=== PATIENT | female | born 1980 | race Hispanic/Latino ===

== ENCOUNTER 2016-04-29 04:45 | Inpatient (IN) | payer OTHER ==
[2016-04-29] MEDS ORDERED: Lactated Ringer's 1,000 ML IV SCH ×2 (05:15→21:45)
--- NOTE | 2016-04-29 05:26 | OBHP ---
Datetime: 04/29/2016 05:23 IP Adm Impression: Term, intrauterine IP Admit Plan: Observation/Evaluation Admit Comment, IP Provider: Patient is a @ 39.6 wks with painful contractions. No VB, no leakin g, +FM. Patient was evaluated earlier today and found to be 1cm. Patient denies any antepartum issues , no medical problems, no allergies, no medication except PNV VE=/-2 LVT=077 mod eb, +accels, no decels TOCO= ctxning q 2-3 mins A/P 1. Patient is unchanged since her earlier exam, but very uncomfortable. SMV=[id number] cat-I 2. Will given Morhine rest with 10IV/10IM 3. CEFM and TOCO 4. re-evaluate as needed Pelvic Type - PN: Adequate Extremities - PN: Normal Abdomen - PN: Normal Back - PN: Normal Breast - PN: Normal Lungs - PN: Normal Heart - PN: Normal Thyroid - PN: Normal Neurologic - PN: Normal HEENT - PN: Normal General - PN: Normal FHR - Baseline A Provider: 130 EGA AdmitDate IP: 39.6 Vital Signs Provider: Reviewed; Within Normal Limits IP Chief Complaint: Uterine contractions NICHD Variability Prov Fetus A: Moderate 6-25bpm NICHD Accel Fetus A IP Provider: [id number] NICHD Decel Fetus A IP Provider: None Dilatation, Provider: 1 Effacement, Provider: 70 Station, Provider: -2 Genitourinary Exam: Normal DTRs - PN: Normal
[2016-04-29 06:45] LABS: HEMATOCRIT 36.3 % (34.0-47.0); MEAN CELL VOLUME 88.3 fl (81.0-99.0); MEAN CORPUSCULAR HEMOGLOBIN 30.1 pg (27.0-31.0); RED CELL DISTRIBUTION WIDTH 13.2 % (11.5-14.5); WHITE BLOOD COUNT 15.3 K/uL (4.8-10.8)
--- NOTE | 2016-04-29 10:59 | OBPN ---
Datetime: 04/29/2016 10:50 IP Progress Impression: Normal progression of labor; Reassuring heart rate IP Informed Consent Obtain: Vaginal Delivery; Risks, Benefits and Alternatives Discussed IP Procedures: Artificial ROM IP Progress Plan: Continue present management; Augmentation; Anesthesia consult Pool Provider: Positive Membranes, Provider: Ruptured Amniotic Fluid Color, Provider: Clear FHR - Baseline A Provider: 120 Presentation-Admit: Vertex IP Progress Note Comment: She was seen by Dr ARELLANO. She was given Morphine for pain. She felt better but pain has returned A: IUP at term latent phase of labor P: discussion about labor, pain management, augmentation, delivery and care Agrees to AROM (clear Fluid)...will obtain epidural and start Pitocin augmentation NICHD Accel Fetus A IP Provider: 15X15 FHR Category Provider Fetus A: Category I NICHD Variability Prov Fetus A: Moderate 6-25bpm Dilatation, Provider: 2 Effacement, Provider: 50 Station, Provider: -1 NICHD Decel Fetus A IP Provider: None Datetime: 04/29/2016 09:10 Gestation - Est Wks by US: 39.6 Datetime: 04/29/2016 05:23 Vital Signs Provider: Reviewed; Within Normal Limits
[2016-04-29] MEDS ORDERED: Lactated Ringer's 1,000 ML IV ONE (11:00)
[2016-04-29] MEDS ORDERED: Fentanyl/Bupivacaine HCl 250 ML EPI ONE (11:53)
[2016-04-29] MEDS ORDERED: Sodium Chloride 0.9% 1,000 ML IV SCH (18:00)
--- NOTE | 2016-04-29 18:02 | OBPN ---
Datetime: 04/29/2016 17:55 IP Progress Impression: Normal progression of labor IP Informed Consent Obtain: Vaginal Delivery; Risks, Benefits and Alternatives Discussed IP Procedures: Intrauterine Pressure Catheter; Amnio Infusion IP Progress Plan: Continue present management Pool Provider: Positive Membranes, Provider: Ruptured Amniotic Fluid Color, Provider: Clear Contraction Comments Provider: 2-3m FHR - Baseline A Provider: 140 IP Progress Note Comment: She had relief from pain with epidural at 12pm. Pitocin at 2:30pm but shut off beacuse she had decel noted. Since then she has been having CTX q3m (no meds) Deceleratoin noted cine 17:35pm...? variable A: Variable decelerations in latent phase oflabor P: condition disucssed with pt...IUPC place and start amnioinfusion NICHD Accel Fetus A IP Provider: 15X15 FHR Category Provider Fetus A: Category II NICHD Variability Prov Fetus A: Moderate 6-25bpm Dilatation, Provider: 4 Effacement, Provider: 90 Station, Provider: 0 NICHD Decel Fetus A IP Provider: Variable
[2016-04-29] MEDS ORDERED: Lidocaine 1% Inj (20ml) ONE (20:04)
--- NOTE | 2016-04-29 20:24 | OBPN ---
Datetime: 04/29/2016 20:00 IP Progress Impression: Normal progression of labor; Reassuring heart rate IP Informed Consent Obtain: Vaginal Delivery; Risks, Benefits and Alternatives Discussed IP Progress Plan: Continue present management; Augmentation Pool Provider: Positive Membranes, Provider: Ruptured Contraction Comments Provider: 2-3m FHR - Baseline A Provider: 150 Presentation-Admit: Vertex IP Progress Note Comment: She had deceleration noted at 19:55pm. SVE 9cm Active phase of labor IUPC in place//amnioinfusion running at 125cc/h and Pitocin at 3miu/h NICHD Accel Fetus A IP Provider: 15X15 FHR Category Provider Fetus A: Category I NICHD Variability Prov Fetus A: Moderate 6-25bpm Dilatation, Provider: 9 Effacement, Provider: 100 Station, Provider: 0 NICHD Decel Fetus A IP Provider: None
--- NOTE | 2016-04-29 23:36 | OBPN ---
Datetime: 04/29/2016 23:30 IP Progress Impression Other: SECOND STAGE OF LABOR IP Progress Impression: Normal progression of labor IP Informed Consent Obtain: Vaginal Delivery; Risks, Benefits and Alternatives Discussed IP Progress Plan: Continue present management; Augmentation Dilatation, Provider: 10 Effacement, Provider: 100 Station, Provider: 1 NICHD Decel Fetus A IP Provider: None Datetime: 04/29/2016 22:30 IP Procedures: Amnio Infusion Contraction Comments Provider: 2-4m FHR - Baseline A Provider: 150 IP Progress Note Comment: She was 9cm earlier...Pitocin left at same level since last shift...increa se Pitocin until CTX q2-3m...observe labor progress NICHD Accel Fetus A IP Provider: 15X15 FHR Category Provider Fetus A: Category I NICHD Variability Prov Fetus A: Moderate 6-25bpm
--- NOTE | 2016-04-29 23:38 | OBPN ---
Datetime: 04/29/2016 23:30 Contraction Comments Provider: 2-3M FHR - Baseline A Provider: 150 IP Progress Note Comment: SECOND STAGE OF LABOR Pitocin at 6cc/hr (20unit bag mixed by pharmacy)... IVF 125cc/h and Amnioinfusion 125cc/h ... anti cipate FHR Category Provider Fetus A: Category I NICHD Variability Prov Fetus A: Moderate 6-25bpm
--- NOTE | 2016-04-29 23:56 | OBADHP ---
Datetime: 04/29/2016 23:30 FHR - Baseline A Provider: 150 Contraction Comments Provider: 2-3M NICHD Variability Prov Fetus A: Moderate 6-25bpm FHR Category Provider Fetus A: Category I NICHD Decel Fetus A IP Provider: None Dilatation, Provider: 10 Effacement, Provider: 100 Station, Provider: 1 Datetime: 04/29/2016 22:30 NICHD Accel Fetus A IP Provider: [id number] Datetime: 04/29/2016 20:00 Presentation-Admit: Vertex Membranes, Provider: Ruptured Pool Provider: Positive Datetime: 04/29/2016 17:55 Amniotic Fluid Color, Provider: Clear Datetime: 04/29/2016 09:10 Admit Comment, IP Provider: Patient is a @ 39.6 wks with painful contractions. No VB, no leakin g, +FM. Patient was evaluated earlier today and found to be 1cm. Patient denies any antepartum issues , no medical problems, no allergies, no medication except PNV. S/P morphine administration VE=/-2 MUE=803 mod eb, +accels, no decels TOCO= ctxning q 2-3 mins A/P 1. Admit to unit 2. Initiate labor protocol 3. CEFM and TOCO 4. re-evaluate as needed OB Hospitalist oncjanene...Term in early labor/painful CTX ([place] forecast today)...pt wants to st ay for delivery...admit to L_D...She was seen and examined by me Pelvic Type - PN: Adequate Extremities - PN: Normal Abdomen - PN: Normal Back - PN: Normal Breast - PN: Normal Lungs - PN: Normal Heart - PN: Normal Thyroid - PN: Normal Neurologic - PN: Normal HEENT - PN: Normal General - PN: Normal Comments, ACOG Physical Exam: ros: General pain from CTX HEENT: no YANG; no visual dist CV: no CP; no palpitations Resp: No SOB; no cough GI: no N/V/D : no F/U/D MS: no joint pain Gestation - Est Wks by US: 39.6 IP Hx Assessment: The History has been Reviewed and is Current IP Chief Complaint: Uterine contractions Genitourinary Exam: Normal DTRs - PN: Normal EGA AdmitDate IP: 39.6 IP Adm Impression: Term, intrauterine IP Admit Plan: Admit to unit; Initiate labor protocol Datetime: 04/29/2016 05:23 Vital Signs Provider: Reviewed; Within Normal Limits
[2016-04-30] MEDS ORDERED: Oxycodone/Acetaminophen 5/325 mg Tab PO PRN (00:38)
--- NOTE | 2016-04-30 00:59 | OBDS ---
DELIVERY PERSONNEL Delivery Doctor: Lizbeth Harper DO Jar Filler: Melina Domínguez RN MATERNAL INFORMATION Delivery Anesthesia: Local; Epidural Medications in Delivery: Pitocin Estimated Blood Loss (ml): 200 Placenta Cultured: No Maternal Complications: None Provider Comments: Attending: Dr. Harper Resident: Dr. Glez Over intact perineum, of live 9,9. Infant was bulb suctioned nasopharygeally an d crying spontaneously. Skin to skin was done. Also delayed cord clamping done. Placenta was deliv ered intact spontaneously. Laceration repaired as above. EBL 200cc She remained stable LABOR SUMMARY EDC: 04/30/2016 00:00 No. Babies in Womb: 1 Attempted: No Labor Anesthesia: Epidural LABOR INFORMATION Oxytocin: Augmentation Group B Beta Strep: Negative Steroids Given: None Reason Steroids Not Administered: Not Applicable MEMBRANES Membranes Rupture Method: Artificial Rupture of Membranes: 04/29/2016 10:50 Length of Rupture (hrs): 13.45 Amniotic Fluid Color: Clear Amniotic Fluid Amount: Scant STAGES OF LABOR Stage 3 hrs: 0 Stage 3 min: 17 VAGINAL DELIVERY Episiotomy: None Laceration Extension: First Degree Laceration Type: Perineal Other Laceration: right labial Laceration Repair: Yes Laceration Repair Note: 1% Lidocaine was infiltrated for local anesthesia...3.0 Vicryl sutures for r epair of labial laceratoin and 2.0 Vicryl Rapide suture for perineal laceration (interuppted x 3) Sponge Count Correct: Yes Sharps Count Correct: Yes Count Comment: 2 suture needles one syringe 5 lap pads BABY A INFORMATION Delivery Date/Time: 04/30/2016 00:17 (Annotations: Data stored by N on behalf of user) Method of Delivery: Vaginal Born in Route : No Forceps: N/A Vacuum Extraction: N/A Shoulder Dystocia : No SHOULDER DYSTOCIA BABY A Infant Delivery Date/Time: 04/30/2016 00:17 (Annotations: Data stored by [facility] on behalf of user) PRESENTATION/POSITION BABY A Presentation: Cephalic Cephalic Presentation: Vertex Breech Presentation: N/A PLACENTA INFORMATION BABY A Placenta Delivery Time : 04/30/2016 00:34 Placenta Method of Delivery: Spontaneous Placenta Status: Delivered SCORES BABY A Heart Rate 1 min: >100 bpm Resp Effort 1 min: Good Cry Reflex Irritability 1 min: Cough or Sneeze or Pulls Away Muscle Tone 1 min: Active Motion Color 1 min: Body [place], Extremities Blue SCORE 1 MIN: 9 Heart Rate 5 min: >100 bpm Resp Effort 5 min: Good Cry Reflex Irritability 5 min: Cough or Sneeze or Pulls Away Muscle Tone 5 min: Active Motion Color 5 min: Body [place], Extremities Blue SCORE 5 MIN: 9 INFORMATION BABY A Gestational Age at Delivery: 40.0 Gestational Status: Term Infant Outcome : Liveborn Condition : Stable Infant Sex: Female WEIGHT/LENGTH BABY A Birthweight (gms): 2925 Weight (lb): 6 Weight (oz): 7 CORD INFORMATION BABY A Nuchal Cord : N/A Cord Blood Taken: Yes Infant Suction: Mouth; Nose
[2016-04-30] MEDS: Multivitamin With Minerals Tab PO SCH (09:14)
--- NOTE | 2016-04-30 11:22 | OBPPN ---
Datetime: 04/30/2016 11:15 PP Pain Prov: Within normal limits PP Nausea Prov: Denies PP Flatus Prov: Yes PP Breasts Prov: Not Done PP Heart Prov: Normal PP Lungs Prov: Normal PP Abdomen/Uterus Prov: Normal PP Lochia Prov: Not Done PP Vulva/Perineum Prov: Not Done PP CVA Tenderness Prov: Normal PP Extremities Prov: Normal PP Impression Prov: Normal progression PP Plan Prov: Continue present management PP Progress Note Prov: Patient doing well and no complaints reports minimal lochia Vital signs stable afebrile Uterus firm below the umbilicus Extremities no Homans day #1 Encourage ambulation Regular dietanticipated discharge in a.m. Vital Signs Provider PP: Reviewed
[2016-04-30] MEDS: Benzocaine/Menthol SPRAY TOP PRN (20:49)
[2016-05-01 07:13] LABS: HEMATOCRIT 29.2 % (34.0-47.0); MEAN CELL VOLUME 89.9 fl (81.0-99.0); MEAN CORPUSCULAR HEMOGLOBIN 30.2 pg (27.0-31.0); MEAN CORPUSCULAR HGB CONC 33.6 g/dL (33.0-37.0); RED CELL DISTRIBUTION WIDTH 13.8 % (11.5-14.5); WHITE BLOOD COUNT 14.4 K/uL (4.8-10.8)
[2016-05-01] MEDS: Multivitamin With Minerals Tab PO SCH (08:49)
--- NOTE | 2016-05-01 09:07 | OBPPN ---
Datetime: 05/01/2016 09:02 PP Pain Prov: Within normal limits PP Abdomen/Uterus Prov: Normal PP Lochia Prov: Normal PP Extremities Prov: Normal PP Progress Prov: Normal PP Impression Prov: Normal progression PP Plan Prov: Continue present management PP Progress Note Prov: PPD 1, s/p , doing well, breast feeding Continue currrent management Vital Signs Provider PP: Reviewed
[2016-05-02] MEDS: Benzocaine/Menthol SPRAY TOP PRN ×2 (00:28→09:05)
[2016-05-02] MEDS: Multivitamin With Minerals Tab PO SCH (09:04)
--- NOTE | 2016-05-02 12:24 | OBDCSUM ---
Datetime: 05/02/2016 10:20 Discharged to, Provider: Home Follow up at, Provider: Dr. Harper Disch Instr Activity: Normal activity Disch Instr Diet: Regular Discharge Instructions, Provider: Routine instructions given Discharge Diagnosis, Provider: Term Delivered Discharge Time: 05/02/2016 10:00 Follow up in weeks, Provider: 6 weeks Disch Referrals: None Contraception discussed, Prov: Yes Disch Activity Restrictions: No lifting; No sexual activity; Nothing in vagina - Remlap, tampon s, douche Contraception after Delivery: Undecided
== END 2016-05-02 17:30 | disposition home or self-care (01) | DRG 775 ==
LOC: H.EROB2 04:45 → H.L&D 08:56 → H.OB/GYN 04-30 02:15
PROVIDERS: ADMIT Obstetrics & Gynecology; ATTEND Obstetrics & Gynecology
PROC: 4A1HXCZ Monitoring of Products of Conception, Cardiac Rate, External Approach (ICD-10-PCS; 2016-04-29)
PROC: 0HQ9XZZ Repair Perineum Skin, External Approach (ICD-10-PCS; principal; 2016-04-30)
PROC: 10E0XZZ Delivery of Products of Conception, External Approach (ICD-10-PCS; 2016-04-30)
DX: O76 Abnormality in fetal heart rate and rhythm complicating labor and delivery (principal); O70.0 First degree perineal laceration during delivery; Z37.0 Single live birth; Z3A.40 40 weeks gestation of pregnancy